=== PATIENT | female | born 1955 | race Caucasian/White ===

== ENCOUNTER → 2016-07-23 | Outpatient (CLI) | payer OTHER ==
--- NOTE | 2016-07-23 12:12 | WWHP ---
DATE OF SERVICE: 07/23/2016 CHIEF COMPLAINT: The patient is here for her routine gynecologic exam and mammogram. HPI: This is a 61-year-old, G2, P2 with an LMP of approximately 1996. She is without gynecologic complaints and denies any postmenopausal bleeding. It has been about 10 years since her last pelvic exam and last mammogram. PAST MEDICAL HISTORY: Anxiety and depression. MEDICATIONS: Paxil 20 mg daily. ALLERGIES: No known drug allergies. PAST SURGICAL HISTORY: section x2, appendectomy in the past. PAST OB HISTORY: Two section deliveries. PAST STATISTICAL ENGINEER HISTORY: She has been menopausal since 1996 and has no history of STDs. SOCIAL HISTORY: She smokes about 10 cigarettes per day and has about 3 alcoholic drink per week. She denies drug use. She is retired and . She is not seeing anybody at this time and has not been sexually active. FAMILY HISTORY: Father of CHF. She denies family history of cancer of the breast, uterus, ovaries or colon. REVIEW OF SYSTEMS: She thinks she has gained about 10 pounds over the last 2 years, but has been fairly stable during the past one year. She denies respiratory, cardiac, or GI problems. PHYSICAL EXAM: Blood pressure 116/84. Height 5 feet 7 inches. Weight 164 pounds. Temperature 96.7, pulse 77. This is a well-developed, well-nourished white female who is alert and oriented x3 in no acute distress. HEENT is within normal limits. NECK: Supple without mass or thyromegaly. CHEST AND LUNGS: Clear to auscultation. HEART: Regular rate and rhythm. Breasts are without mass or discharge. Axillary exam is negative for adenopathy. BACK: Negative for CVA tenderness. ABDOMEN: Soft, nontender, without palpable masses. PELVIC EXAM: External genitalia reveals mild to moderate atrophy without lesions. Cervix and vagina reveal mild atrophy without lesions. The cervix appears nulliparous, there is no evidence of prolapse. The uterus is midposition, nongravid size and nontender. There are no palpable adnexal masses or tenderness. Rectovaginal exam is negative for mass or tenderness and is negative for occult blood. EXTREMITIES: Nontender. IMPRESSION: A 61-year-old menopausal female with normal gynecologic exam. PLAN: 1. Pap smear was performed. 2. Self breast examination was discussed. 3. Mammogram will be done today. I have stressed importance of doing mammograms yearly and having regular gynecologic exams yearly as well. 4. Osteoporosis prevention was discussed. I have recommended bone density screening since she has never had this done. She would like to do this next year. 5. I have recommended screening colonoscopy since she has never had this done, and she states she will see Dr. Truong Tubbs for this. 6. She was advised to quit smoking and the ACS guide on how to quit was given to the patient. 7. She will return in one year. KRIS
--- NOTE | 2016-07-24 13:34 | MM ---
Reason for exam: screening (asymptomatic). Last mammogram was performed 9 years and 8 months ago. History: Patient is postmenopausal. Physical Findings: A clinical breast exam by your physician is recommended on an annual basis and results should be correlated with mammographic findings. MG 3D Screening Mammo W/Cad Bilateral CC and MLO view(s) were taken. Prior study comparison: November 23, 2006, bilateral screening mammogram w/CAD. The breast tissue is heterogeneously dense. This may lower the sensitivity of mammography. No significant changes when compared with prior studies. ASSESSMENT: Benign, BI-RAD 2 RECOMMENDATION: Routine screening mammogram of both breasts in 1 year.
== END | disposition home or self-care (01) ==
LOC: WWCWWP 10:27
PROVIDERS: ATTEND Obstetrics & Gynecology
DX: Z12.31 Encounter for screening mammogram for malignant neoplasm of breast (principal)
CPT/HCPCS: 77063; G0202

== ENCOUNTER → 2021-03-20 | Outpatient (CLI) | payer MEDICARE ==
--- NOTE | 2021-03-21 11:19 | CTL ---
EXAMINATION TYPE: CT Low Dose Lung DATE OF EXAM ORDERED: 03/20/2021 HISTORY: Personal history tobacco use. Lung cancer screening CT DLP: 81.[address] CTDI: 2.2 mGy Automated exposure control for dose reduction was used. SCREENING VISIT: 1 COMPARISON: TECHNIQUE: Low dose computed tomography scan was performed through the chest at 1 mm thick sections a nd reconstructed images in multiple planes at 1 mm and [address] DIAGNOSTIC QUALITY: Satisfactory FINDINGS: LUNG NODULES: None. LUNGS: COPD: Severity: Moderate to severe Fibrosis: Severity: Mild Lymph nodes: None Other findings: RIGHT PLEURAL SPACE: Effusion: None Calcification: None Thickening: None Pneumothorax: None LEFT PLEURAL SPACE: Effusion: None Calcification: None Thickening: None Pneumothorax: None HEART: Heart Size: Normal. At the right epicardial fat pad there is fluid attenuation present measuring 1.2 x 2.3 x 3.2 cm, nonaggressive appearance, possible pericardial cyst Coronary Calcification: Mild Pericardial Effusion: None OTHER FINDINGS: Upper abdomen: Unremarkable Bony thorax: Thoracic spondylosis is present, multilevel Schmorl's node formation noted incidentally Supraclavicular region: Normal Other: IMPRESSION: Negative CT LUNG RAD AND CT CHEST RECOMMENDATION: Lung rad 1, follow-up low-dose chest CT 1 year S Modifier (other clinically significant findings):
== END | disposition home or self-care (01) ==
LOC: RADCTMAIN 13:57
PROVIDERS: ATTEND Family Medicine
DX: Z12.2 Encounter for screening for malignant neoplasm of respiratory organs (principal); Z87.891 Personal history of nicotine dependence
CPT/HCPCS: 71271

== ENCOUNTER → 2023-03-23 | Outpatient (CLI) | payer MEDICARE ==
--- NOTE | 2023-03-23 14:08 | CTL ---
EXAMINATION TYPE: CT Low Dose Lung DATE OF EXAM ORDERED: 03/23/2023 HISTORY: . Lung cancer screening CT DLP: [address] CTDI: 1.80 mGy Automated exposure control for dose reduction was used. SCREENING VISIT: Subsequent COMPARISON: 03/20/2021 TECHNIQUE: Low dose computed tomography scan was performed through the chest at 1 mm thick sections a nd reconstructed images in the coronal plane at [address] DIAGNOSTIC QUALITY: Satisfactory FINDINGS: LUNG NODULES: None. LUNGS: COPD: Severity: None Fibrosis: Severity: None Lymph nodes: None Other findings: None RIGHT PLEURAL SPACE: Effusion: None Calcification: None Thickening: None Pneumothorax: None LEFT PLEURAL SPACE: Effusion: None Calcification: None Thickening: None Pneumothorax: None HEART: Heart Size: Normal Coronary calcification: Mild Pericardial effusion: None OTHER FINDINGS: Upper abdomen: Small hiatal hernia is present. Bony thorax: Normal Supraclavicular region: Normal Other: Ascending thoracic aorta at the level the main pulmonary artery measures 3.3 cm. The main pul monary artery at the bifurcation measures 2.7 cm. IMPRESSION: 1. No suspicious lung nodules. Follow-up low-dose CT chest in one year can be performed. FOLLOW UP CT CHEST RECOMMENDATION: Follow-up low-dose CT chest one year CT LUNG RAD: Lung-Rad 1 Negative
== END | disposition home or self-care (01) ==
LOC: RADCTMAIN 11:21
PROVIDERS: ATTEND Family Medicine
DX: Z12.2 Encounter for screening for malignant neoplasm of respiratory organs (principal); F17.210 Nicotine dependence, cigarettes, uncomplicated
CPT/HCPCS: 71271

== ENCOUNTER → 2023-09-15 | Outpatient (CLI) | payer MEDICARE ==
--- NOTE | 2023-09-20 16:10 | MM ---
Reason for Exam: Screening (asymptomatic). Last mammogram was performed 7 year(s) and 2 month(s) ago. Patient History: Menarche at age 14. First Full-Term at age 27. Postmenopausal. Patient used Hormonal Contraceptives for 10 years. Niece had breast cancer under age 50. Sister had breast cancer at or over age 50. Risk Values: So 5 year model risk: 3.1%. NCI Lifetime model risk: 9.3%. Prior Study Comparison: 11/30/2001 Bilateral Screening Mammogram, [facility]. 11/23/2006 Bilateral Screening Mammogram, [facility]. 07/23/2016 Bilateral Screening Mammogram, [facility]. Tissue Density: There are scattered areas of fibroglandular density. Findings: Analyzed By CAD. The pattern is symmetrical. Benign scattered calcifications are present bilaterally. Chronic nodularities in the right breast. No significant changes. No suspicious groups of microcalcifications, spiculated or lobular masses, architectural distortion or other secondary signs of malignancy are mammographically apparent. Overall Assessment: Benign, BI-RAD 2 Management: Screening Mammogram of both breasts in 1 year. A negative mammogram report should not preclude additional follow up of suspicious palpable abnormalities. Patient should continue monthly self breast exam. A clinical breast exam by your physician is recommended on an annual basis and results should be correlated with mammographic findings. Note on So scores and lifetime risk: 1. A So score greater than 3% is considered moderate risk. If this is the case, consider specialist referral to assess eligibility for a risk reducing agent. 2. If overall lifetime risk for the development of breast cancer is 20% or higher, the patient may qualify for future screening with alternating mammogram and breast MRI. Electronically signed and approved by: Pan Aguilar D.O. Radiologis
== END | disposition home or self-care (01) ==
LOC: RADMAMWWP 11:57
PROVIDERS: ATTEND Family Medicine
DX: Z12.31 Encounter for screening mammogram for malignant neoplasm of breast (principal); R92.323 Mammographic fibroglandular density, bilateral breasts; Z78.0 Asymptomatic menopausal state; Z80.3 Family history of malignant neoplasm of breast
CPT/HCPCS: 77063; 77067

== ENCOUNTER → 2024-09-15 | Outpatient (CLI) | payer MEDICARE ==
--- NOTE | 2024-09-15 18:38 | CTL ---
EXAMINATION TYPE: CT Low Dose Lung DATE OF EXAM ORDERED: 09/15/2024 COMPARISON: CT Low Dose Lung 03/23/2023, 03/20/2021 CLINICAL INDICATION: Female, 69 years old with history of Z12.2, F17.210 NICOTINE DEPENDENCE; PHH, F/ u lung screening for nicotine dependence of 1 ppd x45 years, current smoker, hx of copd., Lung cancer screening, History of Smoking/tobacco use. TECHNIQUE: Low dose computed tomography scan was performed through the chest at 1 mm thick sections a nd reconstructed images in multiple planes at 1 mm and [address] DLP: 101.[address] CTDI: 2.7 mGy Automated exposure control for dose reduction was used. CT DIAGNOSTIC QUALITY: Satisfactory FINDINGS: Nodules: Bilateral anterior right upper lobe subpleural 3.2 mm pulmonary nodule dating back to 2021 (series 6, image 20). Consider benign. No new or enlarging pulmonary nodules. LUNGS: COPD: Severity: Moderate Fibrosis: Severity: None Lymph nodes: None Other findings: Stable enlarged right epicardial cyst measuring up to 1.9 cm dating back to 2021 and considered benign. RIGHT PLEURAL SPACE: Effusion: None Calcification: None Thickening: None Pneumothorax: None LEFT PLEURAL SPACE: Effusion: None Calcification: None Thickening: None Pneumothorax: None HEART: Heart Size: Normal Coronary Calcification: None Pericardial Effusion: Trace OTHER FINDINGS: Upper abdomen: None Bony thorax: Prominent Schmorl's node involving the superior endplate of the T10 vertebral body. Supraclavicular region: None Other: None IMPRESSION: 1. Stable right upper lobe 3.2 mm pulmonary nodule dating back to 2021 and considered benign. No new or enlarging pulmonary nodules. 2. Mild emphysematous changes. CT LUNG RAD AND CT CHEST RECOMMENDATION: Lung-Rad 2 Benign Appearance or Behavior: Continue annual sc reening with LDCT in 12 months. S Modifier (other clinically significant findings): None [facility], , 09/15/2024 6:36 PM
== END | disposition home or self-care (01) ==
LOC: RADCTMAIN 16:15
PROVIDERS: ATTEND Family Medicine
DX: Z12.2 Encounter for screening for malignant neoplasm of respiratory organs (principal); F17.210 Nicotine dependence, cigarettes, uncomplicated; R91.1 Solitary pulmonary nodule; J43.9 Emphysema, unspecified
CPT/HCPCS: 71271